=== PATIENT | male | born 1990 | race Caucasian/White ===

== ENCOUNTER 2024-03-14 14:18 | Emergency (ER) | payer SELFPAY ==
[~2024-03-14] VITALS: Ht 167.6 cm; Wt 94.8 kg
[2024-03-14] MEDS ORDERED: IBUP-1953 PO (16:03)
[2024-03-14] MEDS ORDERED: CEPH500T PO (16:03)
[2024-03-14 17:33] VITALS: BP 125/67; TEMP 98; O2SAT 99
== END 2024-03-14 17:33 | disposition home or self-care (01) ==
LOC: ER 14:28
DX: S82.492A Other fracture of shaft of left fibula, initial encounter for closed fracture (principal); S80.212A Abrasion, left knee, initial encounter; X50.1XXA Overexertion from prolonged static or awkward postures, initial encounter; Y93.89 Activity, other specified; Y92.89 Other specified places as the place of occurrence of the external cause; Y99.8 Other external cause status
CPT/HCPCS: 73610-TC; 73630-TC